=== PATIENT | female | born 1970 | race Caucasian/White ===

== ENCOUNTER 2020-09-04 23:52 | Emergency (ER) | payer SELFPAY ==
[~2020-09-04] VITALS: Ht 144.8 cm; Wt 68.0 kg
[2020-09-05 00:38] VITALS: BP 153/100
--- NOTE | 2020-09-05 00:51 | NUR ---
SHAHIDAD to see patient in tent
--- NOTE | 2020-09-05 00:51 | NUR ---
See complete assessment
--- NOTE | 2020-09-05 01:20 | NUR ---
EKG PERFORMED IN TRIAGE TENT WITH SCREEN. EKG READS SINUS RHYTHM @ 97
--- NOTE | 2020-09-05 02:44 | NUR ---
Patient discharged with v/s stable. Written and verbal after care instructions given and explained. Patient verbalized understanding. Ambulatory with steady gait. All questions addressed prior to discharge. Advised to follow up with PMD.
[2020-09-05 02:45] VITALS: BP 146/98
== END 2020-09-05 02:44 | disposition home or self-care (01) ==
LOC: MED 23:52
DX: U07.1 COVID-19 (principal); I10 Essential (primary) hypertension; R51.9 Headache, unspecified; R07.9 Chest pain, unspecified
CPT/HCPCS: 71045; 93005; 99283